=== PATIENT | female | born 1985 | race American Indian/Alaskan Native ===

== ENCOUNTER 2016-06-29 07:49 | Emergency (ER) | payer MEDICAID ==
[2016-06-29 08:01] VITALS: BP 135/88
--- NOTE | 2016-06-29 08:33 | Emergency Department Report ---
ED Female HPI - General Chief complaint: Abdominal Pain Stated complaint: STOMACH PAIN/DISCHARGE Time Seen by Provider: 06/29/16 08:27 Source: patient Mode of arrival: Ambulatory Limitations: No Limitations - History of Present Illness Initial comments: 31F PMH none p/w c/o vaginal discharge and minor pelvic pain. Patient states that one of her partners may have recently tested positive for chlamydia. Patient also complaining of vaginal discharge yellowish whitish in appearance. Denies any fever or chills no significant abdominal pain no nausea no vomiting. Also complaining of mild dysuria. Denies any lesions on the vagina. Patient states she is currently on control implant and just placed a NuvaRing. States she wanted to follow up with her [facility] but they are not available until next week. Complaint: vaginal discharge Onset/Timin -: week(s) Location: suprapubic Severity: mild Severity scale (0 -10): 3 Quality: aching Consistency: constant Improves with: none Worsens with: urination Are you Now?: No Last Menstrual Period: 03/16/16 EDC: 12/21/16 Associated Symptoms: vaginal discharge - Related Data Previous Rx's Medication Instructions Recorded Last Taken Type Doxycycline [Vibramycin CAP] 100 mg PO Q12HR #28 capsule 06/29/16 Unknown Rx Nitrofurantoin [place]/M-Cryst 100 mg PO Q12HR #14 capsule 06/29/16 Unknown Rx [Macrobid CAP] metroNIDAZOLE [Flagyl TAB] 500 mg PO Q12HR #14 tab 06/29/16 Unknown Rx Allergies Allergy/AdvReac Type Severity Reaction Status Date / Time No Known Allergies Allergy Verified 06/29/16 08:04 ED Review of Systems ROS: Stated complaint: STOMACH PAIN/DISCHARGE Other details as noted in HPI Constitutional: denies: chills, fever Eyes: denies: eye pain, eye discharge, vision change ENT: denies: ear pain, throat pain Respiratory: denies: cough, shortness of breath, wheezing Cardiovascular: denies: chest pain, palpitations Endocrine: no symptoms reported Gastrointestinal: denies: abdominal pain, nausea, diarrhea Genitourinary: dysuria, discharge. denies: urgency Musculoskeletal: denies: back pain, joint swelling, arthralgia Skin: denies: rash, lesions Neurological: denies: headache, weakness, paresthesias Psychiatric: denies: anxiety, depression Hematological/Lymphatic: denies: easy bleeding, easy bruising ED Past Medical Hx - Past Medical History Previous Medical History?: No - Surgical History Past Surgical History?: No - Social History Smoking Status: Never Smoker Substance Use Type: None - Medications Home Medications: Home Medications Medication Instructions Recorded Confirmed Last Taken Type Doxycycline [Vibramycin CAP] 100 mg PO Q12HR #28 capsule 06/29/16 Unknown Rx Nitrofurantoin [place]/M-Cryst 100 mg PO Q12HR #14 capsule 06/29/16 Unknown Rx [Macrobid CAP] metroNIDAZOLE [Flagyl TAB] 500 mg PO Q12HR #14 tab 06/29/16 Unknown Rx ED Physical Exam - General Limitations: No Limitations General appearance: alert, in no apparent distress - Head Head exam: Present: atraumatic, normocephalic - Eye Eye exam: Present: normal appearance, PERRL, EOMI - ENT ENT exam: Present: mucous membranes moist - Neck Neck exam: Present: normal inspection - Respiratory Respiratory exam: Present: normal lung sounds bilaterally. Absent: respiratory distress - Cardiovascular Cardiovascular Exam: Present: regular rate, normal rhythm. Absent: systolic murmur, diastolic murmur, rubs, gallop - GI/Abdominal GI/Abdominal exam: Present: soft, normal bowel sounds - External exam: Present: normal external exam Speculum exam: Present: vaginal discharge Bi-manual exam: Present: cervical motion tendernes (minor amount of CMT and left adnexal tenderness) - Extremities Exam Extremities exam: Present: normal inspection - Back Exam Back exam: Present: normal inspection - Neurological Exam Neurological exam: Present: alert, oriented X3, CN II-XII intact, normal gait - Psychiatric Psychiatric exam: Present: normal affect, normal mood - Skin Skin exam: Present: warm, dry, intact, normal color. Absent: rash ED Course Vital Signs 06/29/16 07:55 Temperature 99.2 F Pulse Rate 81 Respiratory 16 Rate Blood Pressure 135/88 O2 Sat by Pulse 99 Oximetry ED Medical Decision Making - Medical Decision Making A/P: PID, dysuria, vaginal discharge 1-on pelvic exam patient has very mild tenderness given patient's statement that recent partner may have had chlamydia we'll treat empirically for chlamydia with ceftriaxone and doxycycline 2-patient has leukocytes and WBCs in the urine will treat empirically with Macrobid for UTI 3-will also give metronidazole as patient has significant amount of discharge in the vaginal vault 4-cultures sent 5-give patient follow up with [facility] 6- advised patient to use protection and condoms for at least 2-3 weeks while taking antibiotics for some antibiotics may lower efficacy of her control , patient currently has implant for control Critical care attestation.: If time is entered above; I have spent that time in minutes in the direct care of this critically ill patient, excluding procedure time. ED Disposition Clinical Impression: Vaginal discharge Disposition: DISCHARGED TO HOME OR SELFCARE Is pt being admited?: No Does the pt Need Aspirin: No Condition: Stable Instructions: Chlamydia Infection (ED), Pelvic Inflammatory Disease (ED), Bacterial Vaginosis (ED) Prescriptions: metroNIDAZOLE [Flagyl TAB] 500 mg PO Q12HR #14 tab Doxycycline [Vibramycin CAP] 100 mg PO Q12HR #28 capsule Referrals: PRIMARY CAREMD [Primary Care Provider] - 3-5 Days PIPER STEPHENSON MD [Staff Physician] - 3-5 Days [facility] [Provider Group] - 3-5 Days Forms: Work/School Release Form(ED) Time of Disposition: 09:48
[2016-06-29 09:06] LABS: Bacteria,Urine 3+ /HPF (Negative); Bilirubin,Urine NEG (Negative); Blood,Urine SM (Negative); Ketones,Urine NEG (Negative); Leukocyte Esterase,Urine LG (Negative); Mucus,Urine 3+ /HPF; Nitrite,Urine NEG (Negative); Urobilinogen,Urine < 2.0 mg/dL (<2.0)
[2016-06-29 09:14] LABS: WBC,Urine > 182.0 /HPF (0.0-6.0)
[2016-06-29] MEDS ORDERED: ROCEPHIN IM ONE (09:43)
[2016-06-29] MEDS ORDERED: XYLOCAINE 1% MPF 5 mL INFILTRATI ONE (09:43)
== END 2016-06-29 10:13 | disposition home or self-care (01) ==
LOC: ED 07:49
DX: N89.8 Other specified noninflammatory disorders of vagina (principal)
CPT/HCPCS: 81001; 81025; 87210; 87591; 96372; 99284; J0696

== ENCOUNTER 2016-11-02 16:07 | Emergency (ER) | payer MEDICAID ==
[2016-11-02 16:19] VITALS: BP 140/89
--- NOTE | 2016-11-02 17:58 | Emergency Department Report ---
ED Female HPI - General Chief complaint: Urogenital-Female Stated complaint: POSS BLADDER OR UTI/YEAST INFECTION Time Seen by Provider: 11/02/16 17:47 Source: patient Mode of arrival: Ambulatory Limitations: No Limitations - History of Present Illness Initial comments: Patient comes into the ER today with complaints of bladder pain as well as a yeast infection. Patient states that she was recently put on amoxicillin for a UTI and states that the next day she started getting a yeast infection. Patient states that she has had yeast infections before and she knows that that is what is going on. Patient states that she is not , she denies any vomiting, nausea, back pain, diarrhea, constipation, vaginal bleeding. -: week(s) (1) - Related Data Previous Rx's Medication Instructions Recorded Last Taken Type Ciprofloxacin HCl [Ciprofloxacin 500 mg PO Q12HR #14 tab 11/02/16 Unknown Rx TAB] Fluconazole [Diflucan TAB] 150 mg PO Q72HR PRN #4 tablet 11/02/16 Unknown Rx Allergies Allergy/AdvReac Type Severity Reaction Status Date / Time No Known Allergies Allergy Verified 06/29/16 08:04 ED Review of Systems ROS: Stated complaint: POSS BLADDER OR UTI/YEAST INFECTION Other details as noted in HPI Constitutional: denies: chills, fever Eyes: denies: eye pain, eye discharge, vision change ENT: denies: ear pain, throat pain Respiratory: denies: cough, shortness of breath, wheezing Cardiovascular: denies: chest pain, palpitations Endocrine: no symptoms reported Gastrointestinal: denies: abdominal pain, nausea, vomiting, diarrhea, constipation, hematemesis, melena, hematochezia Genitourinary: dysuria. denies: urgency, frequency, hematuria Musculoskeletal: denies: back pain, joint swelling, arthralgia Skin: denies: rash, lesions Neurological: denies: headache, weakness, paresthesias Psychiatric: denies: anxiety, depression Hematological/Lymphatic: denies: easy bleeding, easy bruising ED Past Medical Hx - Past Medical History Previous Medical History?: No - Surgical History Past Surgical History?: No - Social History Smoking Status: Never Smoker Substance Use Type: None - Medications Home Medications: Home Medications Medication Instructions Recorded Confirmed Last Taken Type Ciprofloxacin HCl [Ciprofloxacin 500 mg PO Q12HR #14 tab 11/02/16 Unknown Rx TAB] Fluconazole [Diflucan TAB] 150 mg PO Q72HR PRN #4 tablet 11/02/16 Unknown Rx ED Physical Exam - General Limitations: No Limitations General appearance: alert, in no apparent distress - Head Head exam: Present: atraumatic, normocephalic - Eye Eye exam: Present: normal appearance - ENT ENT exam: Present: normal exam, mucous membranes moist, normal external ear exam - Neck Neck exam: Present: normal inspection. Absent: lymphadenopathy - Respiratory Respiratory exam: Present: normal lung sounds bilaterally. Absent: respiratory distress - Cardiovascular Cardiovascular Exam: Present: regular rate, normal rhythm. Absent: systolic murmur, diastolic murmur, rubs, gallop - GI/Abdominal GI/Abdominal exam: Present: soft, normal bowel sounds. Absent: distended, tenderness, guarding, rebound, rigid - Rectal Rectal exam: Present: deferred - External exam: Present: other (external raw appearing erythematous tissue with white patches consistent with yeast infection) Speculum exam: Absent: vaginal discharge - Extremities Exam Extremities exam: Present: normal inspection - Back Exam Back exam: Present: normal inspection - Neurological Exam Neurological exam: Present: alert, oriented X3, CN II-XII intact - Psychiatric Psychiatric exam: Present: normal affect, normal mood - Skin Skin exam: Present: warm, dry, intact, normal color. Absent: rash ED Course Vital Signs 11/02/16 16:13 Temperature 98.1 F Pulse Rate 99 H Respiratory 16 Rate Blood Pressure 140/89 O2 Sat by Pulse 100 Oximetry ED Medical Decision Making - Lab Data Lab Results 11/02/16 Range/Units 17:42 Urine Color Yellow (Yellow) Urine Turbidity Clear (Clear) Urine pH 6.0 (5.0-7.0) Ur Specific [place] 1.023 (1.003-1.030) Urine Protein <15 mg/dl (Negative) mg/dL Urine Glucose (UA) Neg (Negative) mg/dL Urine Ketones Tr (Negative) mg/dL Urine Blood Neg (Negative) Urine Nitrite Neg (Negative) Urine Bilirubin Neg (Negative) Urine Urobilinogen < 2.0 (<2.0) mg/dL Ur Leukocyte Esterase Lg (Negative) Urine WBC (Auto) 10.0 H (0.0-6.0) /HPF Urine RBC (Auto) 4.0 (0.0-6.0) /HPF U Epithel Cells (Auto) 7.0 (0-13.0) /HPF Urine Bacteria (Auto) 2+ (Negative) /HPF Urine Mucus 1+ /HPF Urine HCG, Qual Negative (Negative) - Medical Decision Making Patient is nontoxic and hemodynamically stable. Patient has a benign abdominal exam. History and examination is consistent with urinary tract infection as well as secondary [place] infection. I will treat patient appropriately for both. Patient is in agreement with treatment plan and patient is stable for discharge. Critical care attestation.: If time is entered above; I have spent that time in minutes in the direct care of this critically ill patient, excluding procedure time. ED Disposition Clinical Impression: Yeast infection of the vagina, UTI (urinary tract infection) Disposition: DISCHARGED TO HOME OR SELFCARE Is pt being admited?: No Does the pt Need Aspirin: No Condition: Good Instructions: Urinary Tract Infection in Women (ED), Vulvovaginal Candidiasis ( ED) Prescriptions: Ciprofloxacin HCl [Ciprofloxacin TAB] 500 mg PO Q12HR #14 tab Fluconazole [Diflucan TAB] 150 mg PO Q72HR PRN #4 tablet PRN Reason: Vaginal Irritation Referrals: PRIMARY CARE, [Primary Care Provider] - 3-5 Days Time of Disposition: 18:19
[2016-11-02 18:13] LABS: Bacteria,Urine 2+ /HPF (Negative); Bilirubin,Urine NEG (Negative); Blood,Urine NEG (Negative); Ketones,Urine TR mg/dL (Negative); Leukocyte Esterase,Urine LG (Negative); Mucus,Urine 1+ /HPF; Nitrite,Urine NEG (Negative); Protein,Urine <15 mg/dL mg/dL (Negative); Urobilinogen,Urine < 2.0 mg/dL (<2.0)
== END 2016-11-02 18:36 | disposition home or self-care (01) ==
LOC: ED 16:07
DX: B37.3 Candidiasis of vulva and vagina (principal); N39.0 Urinary tract infection, site not specified
CPT/HCPCS: 81001; 81025; 99283

== ENCOUNTER 2022-01-28 02:15 | Emergency (ER) | payer MEDICAID ==
[2022-01-28] MEDS ORDERED: ACETAMINOPHEN 325 MG TAB PO ONE (03:13)
== END 2022-01-28 15:00 | disposition left against medical advice (07) ==
LOC: ED 02:15
DX: O20.8 Other hemorrhage in early pregnancy (principal); Z3A.08 8 weeks gestation of pregnancy; Z53.21 Procedure and treatment not carried out due to patient leaving prior to being seen by health care provider